=== PATIENT | male | born 1955 | race Asian ===

== ENCOUNTER 2020-10-09 14:12 | Outpatient (REF) | payer OTHER, SELFPAY ==
--- NOTE | ~2020-10-09 | XR_ITS ---
EXAMINATION: XR THORACIC SPINE CLINICAL INFORMATION: Injury COMPARISON: None TECHNIQUE: 3 views of the thoracic spine were obtained. FINDINGS: There is mild curvature of the mid thoracic spine to the right. Bone alignment is otherwise normal. No fracture or dislocation seen. There is mild multilevel degenerative spondylosis of the mid thoracic spine. Paraspinal soft tissues are unremarkable. XR/XR thoracic spine 3V IMPRESSION: No fracture or dislocation seen. Mild scoliosis and degenerative change.
== END 2020-10-09 14:13 | disposition home or self-care (01) ==
LOC: HO.HMGCX 14:12
PROVIDERS: Visit Provider Nurse Practitioner Family
DX: S39.92XA Unspecified injury of lower back, initial encounter (principal); W22.8XXA Striking against or struck by other objects, initial encounter; Y93.9 Activity, unspecified; Y92.9 Unspecified place or not applicable; Y99.9 Unspecified external cause status
CPT/HCPCS: 72072